=== PATIENT | male | born 1950 | race American Indian/Alaskan Native ===

== ENCOUNTER 2017-08-19 00:41 | Observation (INO) | payer MEDICARE ==
[2017-08-19 01:55] LABS: Basophils # (Auto) 0.1 K/mm3 (0.0-0.1); Basophils % (Auto) 0.8 % (0.0-1.8); Eosinophils # (Auto) 0.1 K/mm3 (0.0-0.4); Hematocrit 36.5 % (35.5-45.6); Hemoglobin 12.2 gm/dl (11.8-15.2); Lymphocytes # (Auto) 1.4 K/mm3 (1.2-5.4); Lymphocytes % (Auto) 20.5 % (13.4-35.0); Mean Corpuscular HGB Conc 33 % (32-34); Mean Corpuscular Hemoglobin 30 pg (28-32); Mean Corpuscular Volume 89 fl (84-94); Monocytes # (Auto) 0.5 K/mm3 (0.0-0.8); Monocytes % (Auto) 6.8 % (0.0-7.3); Platelet Count 270 K/mm3 (140-440); Red Cell Distribution Width 13.3 % (13.2-15.2)
[2017-08-19 02:11] LABS: BUN/Creatinine Ratio 16; Blood Urea Nitrogen 19 mg/dL (9-20); Calcium 8.3 mg/dL (8.4-10.2); Hemolysis Index 3
[2017-08-19] MEDS ORDERED: LASIX ONE (03:44)
--- NOTE | 2017-08-19 07:07 | XRay Report ---
FINAL REPORT EXAM: XR CHEST ROUTINE 2V HISTORY: chest pain TECHNIQUE: PA and lateral chest radiographs PRIORS: None. FINDINGS: No mediastinal shift. Cardiac silhouette is not enlarged. No pneumothorax, effusion, or focal pulmonary opacity. No acute skeletal finding. IMPRESSION: No focal pulmonary opacity.
--- NOTE | 2017-08-19 09:14 | Emergency Department Report ---
ED Chest Pain HPI - General Chief Complaint: Chest Pain Stated Complaint: CHEST PAIN Time Seen by Provider: 08/19/17 06:25 Source: patient, EMS Mode of arrival: Stretcher Limitations: No Limitations - History of Present Illness Initial Comments: Patient presents to the ER with chest pain. Says that a couple of days ago, he was started on penicillin by his dentist for a lower tooth infection. When he took the penicillin yesterday, he developed chest tightness that radiated down to his left arm. This resolved after a couple minutes. It happened again this morning. Symptoms are intermittent, nonexertional, nonpleuritic. He's never had these symptoms before. So, he came to the ER for evaluation. Former smoker. No family history of ACS. At time of ER presentation to the ER, patient has no complaints. Severity scale (0 -10): 2 - Related Data Home Medications Medication Instructions Recorded Confirmed Last Taken Insulin Glargine [Lantus VIAL] 40 units SUB-Q QHS 09/09/15 08/19/17 08/18/17 Lisinopril [Zestril] 20 mg PO QDAY 09/09/15 08/19/17 08/18/17 Allergies Allergy/AdvReac Type Severity Reaction Status Date / Time No Known Allergies Allergy Unverified 09/09/15 17:49 Heart Score - HEART Score History: Slightly suspicious EKG: Normal Age: > 65 Risk factors: > 3 risk factors or hx of atherosclerotic disease Troponin: < normal limit HEART Score: 4 ED Review of Systems ROS: Stated complaint: CHEST PAIN Other details as noted in HPI Constitutional: denies: chills, fever Eyes: denies: eye pain, eye discharge, vision change ENT: denies: ear pain, throat pain Respiratory: SOB at rest. denies: cough, shortness of breath, wheezing Cardiovascular: chest pain. denies: palpitations Endocrine: no symptoms reported Gastrointestinal: denies: abdominal pain, nausea, diarrhea Genitourinary: denies: urgency, dysuria Musculoskeletal: denies: back pain, joint swelling, arthralgia Skin: denies: rash, lesions Neurological: denies: headache, weakness, paresthesias Psychiatric: denies: anxiety, depression Hematological/Lymphatic: denies: easy bleeding, easy bruising ED Past Medical Hx - Past Medical History Previous Medical History?: Yes Hx Hypertension: Yes Hx Diabetes: Yes Additional medical history: Back pain with sciatica. Heart murmur as a child - Surgical History Past Surgical History?: Yes Additional Surgical History: Cataract - Social History Smoking Status: Former Smoker Substance Use Type: None - Medications Home Medications: Home Medications Medication Instructions Recorded Confirmed Last Taken Type Insulin Glargine [Lantus VIAL] 40 units SUB-Q QHS 09/09/15 08/19/17 08/18/17 History Lisinopril [Zestril] 20 mg PO QDAY 09/09/15 08/19/17 08/18/17 History ED Physical Exam - General Limitations: No Limitations General appearance: alert, in no apparent distress - Head Head exam: Present: atraumatic, normocephalic - Eye Eye exam: Present: normal appearance - ENT ENT exam: Present: mucous membranes moist - Neck Neck exam: Present: normal inspection - Respiratory Respiratory exam: Present: normal lung sounds bilaterally. Absent: respiratory distress - Cardiovascular Cardiovascular Exam: Present: regular rate, normal rhythm. Absent: systolic murmur, diastolic murmur, rubs, gallop, JVD - GI/Abdominal GI/Abdominal exam: Present: soft, normal bowel sounds - Rectal Rectal exam: Present: deferred - Extremities Exam Extremities exam: Present: normal inspection. Absent: pedal edema - Back Exam Back exam: Present: normal inspection - Neurological Exam Neurological exam: Present: alert, oriented X3 - Psychiatric Psychiatric exam: Present: normal affect, normal mood - Skin Skin exam: Present: warm, dry, intact, normal color. Absent: rash ED Course Vital Signs 08/19/17 08/19/17 08/19/17 01:02 01:15 01:17 Temperature 98.0 F Pulse Rate 65 57 L 57 L Respiratory 18 18 18 Rate Blood Pressure 154/68 Blood Pressure [Left] O2 Sat by Pulse 96 96 96 Oximetry 08/19/17 08/19/17 08/19/17 01:22 01:24 01:30 Temperature 98.0 F Pulse Rate 57 L 56 L Respiratory 18 20 16 Rate Blood Pressure 155/68 Blood Pressure 154/68 [Left] O2 Sat by Pulse 96 96 95 Oximetry 08/19/17 08/19/17 08/19/17 01:45 02:00 02:15 Temperature Pulse Rate 55 L 56 L 56 L Respiratory 13 14 13 Rate Blood Pressure 155/68 155/68 152/67 Blood Pressure [Left] O2 Sat by Pulse 96 98 98 Oximetry 08/19/17 08/19/17 08/19/17 02:30 02:45 03:00 Temperature Pulse Rate 53 L 54 L 54 L Respiratory 12 13 13 Rate Blood Pressure 156/67 156/67 159/68 Blood Pressure [Left] O2 Sat by Pulse 97 98 97 Oximetry 08/19/17 08/19/17 08/19/17 03:15 03:30 03:45 Temperature Pulse Rate 54 L 52 L 52 L Respiratory 12 12 13 Rate Blood Pressure 159/68 169/67 169/67 Blood Pressure [Left] O2 Sat by Pulse 98 99 98 Oximetry 08/19/17 08/19/17 08/19/17 04:00 04:15 04:30 Temperature Pulse Rate 57 L 55 L 58 L Respiratory 12 11 L 12 Rate Blood Pressure 167/68 167/68 165/69 Blood Pressure [Left] O2 Sat by Pulse 98 98 95 Oximetry 08/19/17 08/19/17 08/19/17 04:45 05:00 05:15 Temperature Pulse Rate 59 L 58 L 58 L Respiratory 13 11 L 16 Rate Blood Pressure 165/69 172/78 172/78 Blood Pressure [Left] O2 Sat by Pulse 98 93 97 Oximetry 08/19/17 08/19/17 08/19/17 05:30 05:45 06:01 Temperature Pulse Rate 54 L 78 52 L Respiratory 19 21 19 Rate Blood Pressure 167/77 167/77 185/71 Blood Pressure [Left] O2 Sat by Pulse 93 97 99 Oximetry 08/19/17 08/19/17 08/19/17 06:15 06:30 06:47 Temperature Pulse Rate 52 L 53 L Respiratory 15 16 Rate Blood Pressure 185/71 167/73 167/73 Blood Pressure [Left] O2 Sat by Pulse 99 98 89 Oximetry 08/19/17 08/19/17 08/19/17 07:00 07:16 07:22 Temperature 98.0 F Pulse Rate 58 L 59 L 58 L Respiratory 16 14 15 Rate Blood Pressure 170/82 170/82 Blood Pressure 143/62 [Left] O2 Sat by Pulse 96 99 95 Oximetry 08/19/17 08/19/17 08/19/17 07:30 07:46 08:00 Temperature Pulse Rate 56 L 58 L 58 L Respiratory 16 14 17 Rate Blood Pressure 167/73 167/73 166/79 Blood Pressure [Left] O2 Sat by Pulse 99 99 95 Oximetry 08/19/17 08/19/17 08/19/17 08:16 08:30 08:46 Temperature Pulse Rate 62 57 L 56 L Respiratory 11 L 15 12 Rate Blood Pressure 166/79 143/62 143/62 Blood Pressure [Left] O2 Sat by Pulse 95 93 95 Oximetry 08/19/17 08/19/17 09:00 09:16 Temperature Pulse Rate 60 66 Respiratory 13 15 Rate Blood Pressure 155/78 143/62 Blood Pressure [Left] O2 Sat by Pulse 96 97 Oximetry ED Medical Decision Making - Lab Data Result diagrams: 08/19/17 01:28 08/19/17 01:28 - EKG Data -: EKG Interpreted by Me EKG shows normal: sinus rhythm, QRS complexes Rate: normal - EKG Data Interpretation: other (first-degree heart block noted. Left axis deviation. T wave inversions in leads 1, aVL, V5 through V6.) - Radiology Data Radiology results: image reviewed - Medical Decision Making 66-year-old male past history of diabetes, hypertension presents to the ER with chest pain. Vital signs are stable. Patient isn't dramatic at time of arrival. Symptoms concerning for anginal equivalents.For pill esophagitis. EKG is nonischemic. Heart scores 4. Patient will be admitted further evaluation of his chest pain. Low suspicion for PE. Chest x-ray unremarkable. Critical care attestation.: If time is entered above; I have spent that time in minutes in the direct care of this critically ill patient, excluding procedure time. ED Disposition Clinical Impression: Chest pain Disposition: OP ADMIT IP TO THIS HOSP Is pt being admited?: Yes Does the pt Need Aspirin: No Condition: Stable Instructions: Chest Pain (ED) Referrals: MARCO ANTONIO BYRNE JR, MD [Primary Care Provider] - 3-5 Days
[2017-08-19] MEDS ORDERED: ZOFRAN IV PRN (10:11)
[2017-08-19] MEDS ORDERED: SODIUM CHLORIDE FLUSH SYRINGE 10 ML IV PRN ×2 (10:11→10:13)
[2017-08-19] MEDS ORDERED: MORPHINE IV PRN (10:11)
--- NOTE | 2017-08-19 10:11 | History and Physical Report ---
History of Present Illness Date of examination: 08/19/17 Date of admission: 08/19/17 Chief complaint: Chest pain History of present illness: Patient is 66 yo with diabetes and hypertension. He presents with chest pain. Patient states he was started on Penicillin for tooth infection by Dentist. Chest pain occurred after he took pills. Chest pain is lower midsternal. Pain was 8 out of 10 in intensity, radiated down left arm, not associated with exertion. Pain not associated with food. He denies shortness of breath. In ED, initial Troponin was normal. Will admit to Telemetry to rule out acute coronary syndrome. Past History Past Medical History: diabetes, hypertension Past Surgical History: Other (Cardiac cath, eye surgery) Social history: , full code. denies: smoking Family history: diabetes, hypertension Medications and Allergies Allergies Allergy/AdvReac Type Severity Reaction Status Date / Time No Known Allergies Allergy Unverified 09/09/15 17:49 Home Medications Medication Instructions Recorded Confirmed Last Taken Type Insulin Glargine [Lantus VIAL] 40 units SUB-Q QHS 09/09/15 08/19/17 08/18/17 History Lisinopril [Zestril TAB] 20 mg PO QDAY 09/09/15 08/19/17 08/18/17 History Lispro Insulin [Humalog] 10 unit SQ TID 08/19/17 08/19/17 08/17/17 17:00 History Famotidine [Pepcid] 20 mg PO BID #60 tablet 08/20/17 Unknown Rx amLODIPine [Norvasc] 5 mg PO DAILY #30 tab 08/20/17 Unknown Rx Exam - Physical Exam Narrative exam: General: Not in acute distress, lying in bed, HEENT:Normocephalic, atraumatic Neck:supple,no JVD Lungs: Clear to auscultation bilaterally, no crackles, no wheeze Heart:S1 and S2 regular, no murmurs, rubs or gallop Abd: soft, non tender, non distended, normal bowel sounds Ext: No edema, no clubbing, no cyanosis Neuro: AAO x 3, moves all extremities. Psych:normal mood - Constitutional Vitals: Temp Pulse Resp BP Pulse Ox 98.0 F 66 15 143/62 97 08/19/17 07:22 08/19/17 09:16 08/19/17 09:16 08/19/17 09:16 08/19/17 09:16 Results - Labs CBC & Chem 7: 08/19/17 01:28 08/19/17 01:28 Labs: Abnormal lab results 08/19/17 08/19/17 Range/Units 01:28 01:28 Seg Neutrophils % 70.9 H (40.0-70.0) % Glucose 265 H (75-100) mg/dL Calcium 8.3 L (8.4-10.2) mg/dL Assessment and Plan Chest pain. Admit to Telemetry to rule out acute coronary syndrome. He has risk factors of diabetes and hypertension. Give Aspirin, nitrates For Stress test tomorrow. Diabetes Mellitus type 2. Accucheck q ac and hs Hypertension. BP stable DVT prophylaxis with heparin subcut Full code status
[2017-08-19] MEDS ORDERED: BABY ASPIRIN PO STA (10:13)
[2017-08-19] MEDS ORDERED: NITROSTAT SL PRN (10:13)
[2017-08-19 10:52] LABS: Chol/HDL Ratio 2.97 %
[2017-08-19] MEDS: TYLENOL PO PRN (12:44)
[2017-08-19] MEDS: NITRO-BID 2% TP SCH ×3 (12:44→18:05)
[2017-08-19] MEDS: HEPARIN SUB-Q SCH ×2 (14:42→23:00)
[2017-08-19] MEDS ORDERED: APRESOLINE IV PRN (16:31)
[2017-08-19] MEDS ORDERED: D50W (25GM) Syringe IV PRN (16:46)
[2017-08-19] MEDS: NORVASC PO SCH ×2 (18:00→18:05)
[2017-08-19] MEDS: PROTONIX PO SCH ×2 (18:00→18:05)
[2017-08-19] MEDS: HumaLOG SUB-Q SCH ×2 (18:01→22:36)
[2017-08-19] MEDS: ZESTRIL PO SCH ×2 (18:01→18:05)
[2017-08-19] MEDS ORDERED: HumaLOG SUB-Q SCH (22:00)
[2017-08-19] MEDS ORDERED: LANTUS SUB-Q SCH (22:00)
[2017-08-19] MEDS ORDERED: SODIUM CHLORIDE FLUSH SYRINGE 10 ML IV SCH (22:00)
[2017-08-20] MEDS: TYLENOL PO PRN (01:38)
[2017-08-20] MEDS: HEPARIN SUB-Q SCH (06:33)
[2017-08-20] MEDS: NITRO-BID 2% TP SCH ×2 (06:34→12:56)
[2017-08-20] MEDS: HumaLOG SUB-Q SCH ×4 (08:16→12:55)
[2017-08-20] MEDS ORDERED: LEXISCAN IV ONE ×2 (08:20→08:21)
[2017-08-20] MEDS ORDERED: ECOTRIN PO SCH (10:00)
--- NOTE | 2017-08-20 11:33 | Discharge Summary ---
Providers - Providers Date of Admission: 08/19/17 10:11 Date of discharge: 08/20/17 Attending physician: SADA PAGAN 08/19/17 Consult to Cardiac Rehabilitation [CONS] Routine Reason For Exam: Phase I Primary care physician: MARCO ANTONIO BYRNE Hospitalization Condition: Fair Disposition: DC-01 TO HOME OR SELFCARE Core Measure Documentation - Palliative Care Palliative Care/ Comfort Measures: Not Applicable - Core Measures Any of the following diagnoses?: none Exam - Constitutional Vitals: Temp Pulse Resp BP Pulse Ox 98.8 F 75 20 154/72 99 08/20/17 07:45 08/20/17 07:45 08/20/17 07:45 08/20/17 07:45 08/20/17 10:22 Plan Activity: advance as tolerated Diet: low fat, low cholesterol, low salt, diabetic Additional Instructions: 1.Follow up with PCP in 1 week Follow up with: MARCO ANTONIO BYRNE JR, MD [Primary Care Provider] - 3-5 Days
[2017-08-20 12:08] VITALS: BP 155/72
[2017-08-20] MEDS: NORVASC PO SCH (12:53)
[2017-08-20] MEDS: PROTONIX PO SCH (12:54)
[2017-08-20] MEDS: ZESTRIL PO SCH (12:54)
--- NOTE | 2017-08-20 13:52 | Treadmill Report ---
NUCLEAR PERFUSION SCAN REFERRING PHYSICIAN: Alexander Canas M.D. PROTOCOL: The patient was brought to the stress lab in postoperative state, given 10 mCi of technetium 99m at rest. The patient underwent rest imaging. The patient underwent Lexiscan stress test. At peak stress, the patient was given 26 mCi of technetium 99m. Shortly thereafter, the patient underwent stress imaging. Interpretation of raw imaging reveals mild GI artifact. No significant motion artifact. SPECT imaging examined carefully in horizontal long axis, vertical long axis, and short axis views. Inferior wall is partially obscured by GI artifact. There is no evidence of significant fixed or reversible perfusion defect suggestive of prior infarction or ischemia. Gated wall motion was normal systolic thickening, calculated ejection fraction of 57%. No TID. CONCLUSIONS: 1. Normal myocardial perfusion scan without evidence of active ischemia or prior infarction. 2. Normal left ventricular systolic performance without evidence of transient ischemic dilatation and stress-induced segmental wall motion abnormalities. JOB# [id number] MIGUEL/HILTON
--- NOTE | 2017-08-25 11:40 | Query- Chest Pain ---
Dear Floresita Date:__08/25/2017 Tire Repairman/CDS: dalton Phone#:__[phone] Exercise your independent professional judgment when responding to query. Questions asked do not imply a particular answer is desired or expected. We greatly appreciate your clarification on this issue. Clinical Documentation States: Patient is 66 yo with diabetes and hypertension. He presents with chest pain. Patient states he was started on Penicillin for tooth infection by Dentist. Chest pain occurred after he took pills. Chest pain is lower midsternal. Pain was 8 out of 10 in intensity, radiated down left arm, not associated with exertion. Pain not associated with food. Taken from H&P note () on 08/19. Assessment and Plan Chest pain. Admit to Telemetry to rule out acute coronary syndrome. He has risk factors of diabetes and hypertension. Give Aspirin, nitrates For Stress test tomorrow. Clinical Findings Show: Exercise stress test done 08/20/17 shows normal myocardial perfusion scan and normal left ventricular systolic performance. Please document the etiology of Chest Pain: [ ] Myocardial Infarction [ ] Pneumonia [ ] Mediastinitis [ ] Costochondritis [ ] Pulmonary Embolism [ ] Coronary Artery Disease [x ] GERD [ ] Other: [ ] Comment/Explanation: Present on Admission: [x ] Yes (Y) [ ] Clinically undeterminable (W) [ ] No(N) Please document response in your Progress Notes and/or Discharge Summary and indicate if the condition was present on admission. RUBEN
== END 2017-08-20 14:20 | disposition home or self-care (01) ==
LOC: ED 00:41 → 4A 10:11 → INTOOBSV 10:11 → 4A 11:37
PROVIDERS: ADMIT Internal Medicine; ATTEND Internal Medicine
DX: R07.89 Other chest pain (principal); E11.9 Type 2 diabetes mellitus without complications; I10 Essential (primary) hypertension; Z82.49 Family history of ischemic heart disease and other diseases of the circulatory system; Z83.3 Family history of diabetes mellitus; Z79.899 Other long term (current) drug therapy; Z79.4 Long term (current) use of insulin
CPT/HCPCS: 36415; 71046; 78452; 80048; 80061; 82962; 83036; 84484; 85025; 93005; 93010; 93017; 96372; 99285; A9502; G0378; J1644; J2785; 96374; J1815; J1940

== ENCOUNTER 2018-12-14 12:24 | Emergency (ER) | payer MEDICARE ==
--- NOTE | 2018-12-14 12:38 | Event Note ---
ED Screening Note Date of service: 12/14/18 Time: 12:34 ED Screening Note: This is a 68 y.o. M. that presents to the ER with chills and numbness on left side for 1-2 months. Patient government operations consultant states patient is moving slower than usual and multiple elevated blood pressure readings. Patient states he is always weak on the left side since stroke 5 yrs ago. PMH of HTN, GERD, DM2, HLD, TN This initial assessment/diagnostic orders/clinical plan/treatment(s) is/are subject to change based on patients health status, clinical progression and re- assessment by fellow clinical providers in the ED. Further treatment and workup at subsequent clinical providers discretion. Patient/guardian urged not to elope from the ED as their condition may be serious if not clinically assessed and managed. Initial orders include: Accucheck [address] of head
--- NOTE | 2018-12-14 14:05 | Cat Scan Report ---
CT HEAD WITHOUT CONTRAST INDICATION : r/o cva, hx of cva. TECHNIQUE: Axial imaging performed from the skull apex through the skull base without the use of con trast. Sagittal and coronal reformatted images. All CT scans at this location are performed using C T dose reduction for ALARA by means of automated exposure control. COMPARISON: None FINDINGS: Parenchyma: No acute intracranial hemorrhage or parenchymal abnormality. Chronic focal infarcts are identified in both cerebellar hemispheres and bilateral thalami. No large area of acute ischemia or h emorrhage is identified. No obvious mass or mass effect. Ventricles: Ventricles are normal in size and appear symmetric. Bones: No acute osseous abnormality. Sinuses: Sinuses and mastoid air cells are clear. Soft tissues: Soft tissues including the orbits appear normal. IMPRESSION: No acute abnormality. 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 Signer Name: Isrrael Nixon Jr, MD Signed: 12/14/2018 2:01 PM Workstation Name: [id number]
[2018-12-14 14:50] LABS: Basophils % (Auto) 0.8 % (0.0-1.8); Eosinophils % (Auto) 0.3 % (0.0-4.3); Hematocrit 43.9 % (35.5-45.6); Hemoglobin 14.5 gm/dl (11.8-15.2); Lymphocytes # (Auto) 1.3 K/mm3 (1.2-5.4); Lymphocytes % (Auto) 21.1 % (13.4-35.0); Mean Corpuscular HGB Conc 33 % (32-34); Mean Corpuscular Volume 91 fl (84-94); Monocytes # (Auto) 0.4 K/mm3 (0.0-0.8); Monocytes % (Auto) 6.4 % (0.0-7.3); Platelet Count 290 K/mm3 (140-440); Red Blood Count 4.83 M/mm3 (3.65-5.03); Red Cell Distribution Width 13.4 % (13.2-15.2)
--- NOTE | 2018-12-14 14:51 | Emergency Department Report ---
ED General Adult HPI - General Chief complaint: High BP Stated complaint: POSS STROKE/HBP Time Seen by Provider: 12/14/18 12:34 Source: patient, family Mode of arrival: Wheelchair Limitations: No Limitations - History of Present Illness Initial comments: 68-year-old male with history of hypertension, CVA with left-sided deficits, presents to ED with elevated blood pressure. Patient states he has had elevated blood pressure readings over the last 2 weeks, so patient's family brought him to the ER for evaluation. Family is concerned that patient is having a stroke because of left-sided weakness, however patient states he has had left-sided weakness and numbness for approximately 2 months for last CVA. Patient states he does not want to take any blood pressure medication due to the harmful effects that it may cause, but states he agreed to take lisinopril only. Patient states now his niece is telling him that he needs to take a medication i n addition to lisinopril to control his blood pressure. Patient states he is stressed over his family members telling him what to do, states that makes him upset, which then raises his blood pressure. Patient denies headache, nausea, vomiting, chest pain, shortness of breath, new weakness or numbness. -: week(s) (2) Severity scale (0 -10): 0 Improves with: medication Worsens with: none Associated Symptoms: denies: chest pain, headaches, nausea/vomiting, shortness of breath - Related Data Home Medications Medication Instructions Recorded Confirmed Last Taken Insulin Glargine [Lantus VIAL] 40 units SUB-Q QHS 09/09/15 08/19/17 08/18/17 Lisinopril [Zestril TAB] 20 mg PO QDAY 09/09/15 08/19/17 08/18/17 Lispro Insulin [HumaLOG] 10 unit SQ TID 08/19/17 08/19/17 08/17/17 17:00 Previous Rx's Medication Instructions Recorded Last Taken Type Famotidine [Pepcid] 20 mg PO BID #60 tablet 08/20/17 Unknown Rx amLODIPine [Norvasc] 5 mg PO DAILY #30 tab 08/20/17 Unknown Rx Allergies Allergy/AdvReac Type Severity Reaction Status Date / Time No Known Allergies Allergy Unverified 09/09/15 17:49 ED Review of Systems ROS: Stated complaint: POSS STROKE/HBP Other details as noted in HPI Comment: All other systems reviewed and negative Constitutional: denies: fever Respiratory: denies: shortness of breath Cardiovascular: denies: chest pain Gastrointestinal: denies: nausea, vomiting Neurological: denies: headache ED Past Medical Hx - Past Medical History Previous Medical History?: Yes Hx Hypertension: Yes Hx CVA: Yes (LEFT SIDED WEAKNESS) Hx Heart Attack/AMI: Yes Hx Diabetes: Yes Hx Arthritis: Yes Additional medical history: Back pain with sciatica. Heart murmur as a child - Surgical History Past Surgical History?: Yes Additional Surgical History: Cataract - Social History Smoking Status: Unknown if ever smoked Substance Use Type: None - Medications Home Medications: Home Medications Medication Instructions Recorded Confirmed Last Taken Type Insulin Glargine [Lantus VIAL] 40 units SUB-Q QHS 09/09/15 08/19/17 08/18/17 History Lisinopril [Zestril TAB] 20 mg PO QDAY 09/09/15 08/19/17 08/18/17 History Lispro Insulin [HumaLOG] 10 unit SQ TID 08/19/17 08/19/17 08/17/17 17:00 History Famotidine [Pepcid] 20 mg PO BID #60 tablet 08/20/17 Unknown Rx amLODIPine [Norvasc] 5 mg PO DAILY #30 tab 08/20/17 Unknown Rx ED Physical Exam - General Limitations: No Limitations General appearance: alert, in no apparent distress - Head Head exam: Present: atraumatic, normocephalic - Eye Eye exam: Present: normal appearance - ENT ENT exam: Present: mucous membranes moist - Neck Neck exam: Present: normal inspection - Respiratory Respiratory exam: Present: normal lung sounds bilaterally. Absent: respiratory distress - Cardiovascular Cardiovascular Exam: Present: normal rhythm, tachycardia - GI/Abdominal GI/Abdominal exam: Absent: distended - Extremities Exam Extremities exam: Present: normal inspection - Neurological Exam Neurological exam: Present: alert, oriented X3, CN II-XII intact, motor sensory deficit (4/5 strength in LUE) - Psychiatric Psychiatric exam: Present: normal affect, normal mood - Skin Skin exam: Present: warm, dry, intact, normal color ED Course Vital Signs 12/14/18 12/14/18 12/14/18 12:35 13:52 14:20 Temperature 98.5 F 98.4 F Pulse Rate 136 H 110 H Respiratory 20 20 14 Rate Blood Pressure 157/89 135/84 Blood Pressure [Left] O2 Sat by Pulse 97 98 Oximetry 12/14/18 12/14/18 12/14/18 15:11 16:11 16:20 Temperature Pulse Rate 110 H Respiratory 16 Rate Blood Pressure 162/86 Blood Pressure 195/132 162/86 [Left] O2 Sat by Pulse 100 Oximetry ED Medical Decision Making - Lab Data Result diagrams: 12/14/18 14:22 12/14/18 14:22 - Radiology Data Radiology results: report reviewed, image reviewed - Medical Decision Making 68-year-old male with asymptomatic hypertension. Patient with no new neuro deficits, history of CVA with left-sided numbness and weakness. This is unchanged per patient. CT head is unremarkable. Labs are normal. Blood pressure is labile. Patient had elevated blood pressure with systolic BP of 190s. At that time I was going to treat with clonidine, however repeat blood pressure shows systolic BP in the 160s. I do not feel comfortable treating this patient's blood pressure at this time. Since his hypertension is asymptomatic, I will defer to patient's primary care physician to adjust his blood pressure medications if needed. Will discharge at this time. Return precautions given. - Differential Diagnosis HTN, CVA Critical care attestation.: If time is entered above; I have spent that time in minutes in the direct care of this critically ill patient, excluding procedure time. ED Disposition Clinical Impression: Hypertension Disposition: DC-01 TO HOME OR SELFCARE Is pt being admited?: No Condition: Stable Instructions: Hypertension (ED) Referrals: LUZ VALLE MD [Referring] - 3-5 Days SYDNIE BALL MD [Staff Physician] - 3-5 Days [facility] [Provider Group] - 3-5 Days Time of Disposition: 16:23
[2018-12-14 15:09] LABS: BUN/Creatinine Ratio 10; Blood Urea Nitrogen 10 mg/dL (9-20); Calcium 9.4 mg/dL (8.4-10.2); Hemolysis Index 6
[2018-12-14 15:14] LABS: Mucus,Urine FEW /HPF
[2018-12-14 15:27] LABS: Bilirubin,Urine NEG (Negative); Blood,Urine NEG (Negative); Color,Urine Yellow (Yellow); Urobilinogen,Urine < 2.0 mg/dL (<2.0); WBC,Urine < 1.0 /HPF (0.0-6.0)
[2018-12-14] MEDS ORDERED: cloNIDine 0.1 MG TAB PO ONE (15:31)
[2018-12-14 16:12] VITALS: BP 162/86
== END 2018-12-14 16:40 | disposition home or self-care (01) ==
LOC: ED 12:24
DX: I10 Essential (primary) hypertension (principal); I25.2 Old myocardial infarction; E11.9 Type 2 diabetes mellitus without complications; M19.90 Unspecified osteoarthritis, unspecified site; Z86.73 Personal history of transient ischemic attack (TIA), and cerebral infarction without residual deficits; Z98.890 Other specified postprocedural states; Z79.4 Long term (current) use of insulin
CPT/HCPCS: 36415; 70450; 80048; 81001; 82962; 85025; 93005; 93010